=== PATIENT | male | born 1950 | race Caucasian/White ===

== ENCOUNTER 2020-10-09 08:07 | Observation (INO) ==
--- NOTE | 2020-09-19 12:58 | Anesthesiology Consultation ---
Date of Service September 19, 2020 Assessment & Plan (1) Encounter for pre-operative examination: - Per assessment on 09/19: Travel screen negative. No known COVID-19 positive contacts or current COVID-19 related symptoms. Surgeon arranging preop COVID te sting (scheduled 10/02). Awaiting results. - ASA instructions: per surgeon/prescriber - Hx VSD s/p occluder (placed 2002): Patient subsequently discharged from cardiology/no issues since. Case reviewed with Dr. Romero (per 11/04/19 anesthesia consultation note when patient was originally scheduled for this surgery which has since been r/s multiple times). No further cardiac evaluation/testing needed prior to surgery from her perspective. Chart Review Chart Review: Acceptable Risk for Surgery and Patient NOT seen in Pre Admission Testing History Surgery Operation Date: 10/09/20 10:40 Proposed Procedures p Right Total Knee Arthroplasty - Otis Gonzalez MD Height/Weight Height: 6 ft 2 in Weight: 95.254 kg Allergies Allergy/AdvReac Type Severity Reaction Status Date / Time No Known Allergies Allergy Verified 09/19/20 11:25 Medications Home Medications Medication Instructions Recorded Confirmed Last Taken amlodipine 5 mg tablet 5 mg PO QAM 05/05/19 09/19/20 Unknown atenolol 50 mg tablet 50 mg PO QAM 05/05/19 09/19/20 Unknown lisinopril 20 mg tablet 20 mg PO BID tab 05/05/19 09/19/20 Unknown acetaminophen 650 mg 1,950 mg PO BID PRN tab 09/02/19 09/19/20 Unknown tablet,extended release aspirin 325 mg PO QAM 10/28/19 09/19/20 Unknown Wheeled Walker #1 ea 07/09/20 07/09/20 Unknown alfuzosin 10 mg tablet,extended 10 mg PO DAILY #90 tab 09/12/20 09/19/20 Unknown release 24 hr Past Medical History Medical History BPH with obstruction/lower urinary tract symptoms History of stroke 2002 (prior to cath)- no residual effects Hypercholesterolemia Hypertension Osteoarthritis Right knee DJD Ventricular septal defect with absent outlet septum and overriding truncal valve s/p cardiac occluder Past Family History Family History Other Colorectal cancer Deep vein thrombosis Heart disease Pulmonary embolism Stroke Past Surgical History Surgical History H/O cardiac catheterization 2002 [facility] and no stent History of colonoscopy History of esophagogastroduodenoscopy (EGD) History of transesophageal echocardiography (ARETHA) 2002 Presence of other cardiac implants and grafts cardiac occluder inserted (2002)- discharged from cardiology per patient Social History Smoking Status: Never smoker Hx Alcohol Use: Yes Alcohol type: beer alcohol intake frequency: a few times a month substance use type: does not use Testing Laboratory Results 08/13/20 WBC 3.84 (surgeon's office made aware) H/H 13.7/41.4 PLATELETS 196 SODIUM 144 POTASSIUM 4.7 CHLORIDE 110 CO2 32 BUN 18 CREATININE 0.87 GLUCOSE 109 PT 11.0 PTT 26.9 INR 1.0 TYPE AND SCREEN O+Ab- Electrocardiogram Date: 11/04/19 SB with sinus arrhythmia at 50bpm. Minimal voltage criteria for LVH, may be normal variant. Chest X-Ray Date: 11/04/19 Findings: + NAD
--- NOTE | 2020-10-06 13:30 | History and Physical Report ---
DATE OF ADMISSION: 10/09/2020 CHIEF COMPLAINT: Bilateral knee pain and discomfort, right side greater than left. HISTORY OF PRESENT ILLNESS: The patient is a 69-year-old gentleman who now presents again for surgical treatment of his right knee. He has got a long history of bilateral knee pain and discomfort and we have been following him for the past 2 years. He has been through extensive conservative treatment, which became less successful over time. He has actually been scheduled for right knee replacement on several occasions, but had to be canceled due to the COVID epidemic. Then there were some business issues that he had to take care of. He continues to be limited by his knee pain, discomfort, swelling. He now presents for surgical treatment. Pain is global. The more he is up on it, the more it hurts. He limps more as the day goes on. PAST MEDICAL HISTORY: 1. Hypertension. 2. History of a TIA/mini stroke. 3. History of atrial fibrillation in the past, but not on any blood thinners. 4. TMJ. 5. Low back pain/sciatica. PAST SURGICAL HISTORY: Include heart catheterization for AFib. ALLERGIES: None. CURRENT MEDICATIONS: Include: 1. Atenolol. 2. Amlodipine. 3. Lisinopril. 4. Aspirin. SOCIAL HISTORY: A 69-year-old male. He lives in [place]. Seven drinks per week. Does not smoke. FAMILY HISTORY: Noncontributory. REVIEW OF SYSTEMS: Significant for history of atrial fibrillation, treated effectively with a Watchman device. He is off anticoagulation. No chest pain or shortness of breath. No history of DVT or PE. No known bleeding problems. PHYSICAL EXAMINATION GENERAL: Shows a pleasant, middle-aged male, looks to be in pretty good health. HEENT: Benign. NECK: Supple, no lymphadenopathy. LUNGS: Clear to auscultation. HEART: Has a regular rate and rhythm. ABDOMEN: Soft, nontender, nondistended. EXTREMITIES: Grossly neurovascularly intact except as follows. Examination of the right knee reveals the patient ambulates independently. He has got fairly neutral to slight valgus alignment to his knee. He has got a small to moderate size knee effusion. Range of motion about 5 degrees short of full extension to 125 degrees of flexion. There is no instability. No pain with hip motion. X-RAYS: X-rays of the right knee were reviewed. It shows moderate to advanced right knee DJD. He has got tricompartment disease. He still got some cartilage space, but osteophytes in all 3 compartments. ASSESSMENT: A 69-year-old male with bilateral knee degenerative joint disease, right side worse than the left. It has progressed over the years and he has failed conservative treatment and would like to have his right knee replaced. He has actually been scheduled on 2 occasions, but canceled due to COVID issues. PLAN: We are going to take him to the operating room and do right total knee replacement. The risks and benefits of this procedure were explained to the patient including but not limited to DVT, PE, , infection, neurological injury, vascular injury, bleeding problem, pain, limited range of motion, stiffness, failure to relieve symptoms, incomplete relief of symptoms, need for further surgery in future, fracture, leg length inequality, nerve palsy, etc. The patient understands and desires to proceed. Informed consent was obtained. He does have this history of atrial fibrillation, but has been treated effectively with a Watchman device. He is off anticoagulation. We will use his full strength aspirin that he takes twice a day for DVT prophylaxis. He knows to hold his lisinopril the morning of surgery and take his metoprolol/atenolol. He is planning to be discharged to home using [facility] home health program.
[~2020-10-09 08:07] MED LIST: ACETAMINOPHEN 500 MG TAB PO SCH; BUPIVACAINE 0.5 % 5 MG/1 ML PF 10ML VIAL ONE; BUPIVACAINE LIPOSOME/PF 266 MG, BUPIVACAINE/EPINEPHRINE 50 ML, SODIUM CHLORIDE 0.9% 30 ... INFIL SCH; FAMOTIDINE 20 MG TAB PO SCH; GABAPENTIN 300 MG CAP PO SCH; LR 500ML BOLUS, THEN 15ML/HR IV SCH; LR 60ML/HR IV SCH; METOCLOPRAMIDE HCL 10 MG TABLET PO SCH; ROPIVACAINE 0.5% 5 MG/ML 30 ML VIAL ONE; TRANEXAMIC ACID 1,000 MG **IV Intra-op IV SCH; ceFAZolin 2000MG 2,000 MG/15 ML SYR IV SCH
--- NOTE | 2020-10-09 08:57 | History & Physical Bridge Note ---
Date of Service October 09, 2020 History & Physical Bridge Note I have examined the patient, reviewed the History & Physical and in the interval since the performance of the History & Physical I have noted the following changes of clinical significance: no changes noted
[2020-10-09] MEDS ORDERED: MIDAZOLAM HCL 1 MG/ML 2ML VIAL ONE (09:32)
[2020-10-09] MEDS ORDERED: PROPOFOL IV EMULSION 10 MG/ML 20 ML VIAL IV ONE ×2 (09:34→10:37)
[2020-10-09] MEDS ORDERED: BUPIVACAINE LIPOSOME 1.3% 266 MG/20 ML VIAL ONE (10:35)
[2020-10-09] MEDS ORDERED: SODIUM CHLORIDE 0.9% PF 50 ML VIAL ONE (10:35)
[2020-10-09] MEDS ORDERED: BACITRACIN INJ 50,000 UNIT VIAL ONE (10:35)
[2020-10-09] MEDS ORDERED: EPINEPHrine INJ 1 MG/ML AMP ONE (10:36)
[2020-10-09] MEDS ORDERED: BUPIVACAINE 0.25% 30 ML VIAL ONE (10:36)
[2020-10-09] MEDS ORDERED: HYDROmorphone INJ 1 MG/ML SYRINGE IV PRN (11:00)
[2020-10-09] MEDS ORDERED: KETOROLAC 30 MG/ML VIAL IV PRN (11:00)
[2020-10-09] MEDS ORDERED: ONDANSETRON INJ 2 MG/ML 2 ML VIAL IV PRN ×2 (11:00→14:29)
[2020-10-09] MEDS ORDERED: ATROPINE SULFATE 0.1 MG/ML 10ML SYR IV PRN (11:00)
[2020-10-09] MEDS ORDERED: ePHEDrine sulfate 50 MG/ML AMP IV PRN (11:00)
[2020-10-09] MEDS ORDERED: ONDANSETRON INJ 2 MG/ML 2 ML VIAL ONE (12:51)
--- NOTE | 2020-10-09 13:04 | Post Operative Brief Note ---
PG Immediate Post Op with CF Date of Surgery October 09, 2020 Pre & Post Diagnosis Operation Date: 10/09/20 10:40 Pre-Op Diagnosis: Right Knee Degenerative Joint Disease; Knee Pain Post-Op Diagnosis: Right Knee Degenerative Joint Disease; Knee Pain I identified the patient and participated in the time-out.: Yes Procedure Operation Date: 10/09/20 10:40 Actual Procedures p Right Total Knee Replacement(Right) - Otis Gonzalez MD Surgeon Otis Gonzalez MD Woodwork Salvage Inspector MANDIE Silva Estimated Blood Loss 50 Findings Consistent with Post-Op Diagnosis Fluids 1200 cc Specimens Specimen Description: A. Right knee bone and tissue Drains Hemovac Drain Anesthesia Type Spinal MAC Complications none Disposition Accompanied Patient To Recovery: No Disposition: Recovery Room
--- NOTE | 2020-10-09 13:19 | Operative Report ---
Post Operative Report Pre & Post Diagnosis Operation Date: 10/09/20 10:40 Pre-Op Diagnosis: Right Knee Degenerative Joint Disease; Knee Pain Post-Op Diagnosis: Right Knee Degenerative Joint Disease; Knee Pain I identified the patient and participated in the time-out.: Yes Procedure Operation Date: 10/09/20 10:40 Actual Procedures p Right Total Knee Replacement(Right) - Otis Gonzalez MD Surgeon Otis Gonzalez MD Animal Science Instructor MANDIE Silva Estimated Blood Loss 50 Findings Consistent with Post-Op Diagnosis Operative findings were advanced right knee tricompartment DJD. He had extensive grade 4 [id number]-amnr disease with erosions in all 3 compartments and osteophytes in all 3 compartments. Moderate to large knee joint effusion. He had a valgus deformity to his knee. Fluids 1200 cc. Specimens Right knee sent for pathology. Drains None. Anesthesia Type Spinal MAC Complications none Disposition Accompanied Patient To Recovery: No Disposition: Recovery Room Indications Patient is a 69-year-old gentleman is had a several year history of increasing right knee pain discomfort. This became unresponsive conservative care. X-ray revealed moderate knee DJD. He did have an MRI which showed much more extensive arthritic change. He failed all conservative measures. He continued be bothered by recurrent pain discomfort swelling in his knee. He elected proceed with surgical treatment. Description of Procedure Operative implants consist of: 1 Biomet Vanguard size 72.5 right posterior stabilized femoral component. 2. Biomet size 83 tibial tray. 3. 10 mm posterior stabilized polyethylene insert. 4. 34 x 8 and half all polypatella. The patient was taken to the operating identified placed in the operating table supine position but all contact areas were properly padded. IV antibiotics tried by anesthesia team. A spinal anesthetic and abductor canal block had provided holding area. Jefferson catheter was placed in sterile fashion. Right thigh turn was then placed in the right lower extremities and prepped and draped in usual sterile fashion. The right leg was elevated exsanguinated with use of an Esmarch and turns placed at 300 mmHg. An anterior approach to the right knee was then performed through a longitudinal incision centered over the patella. Sharp dissection was got through subcutaneous tissue down the extensor mechanism. A medial parapatellar arthrotomy incision was made. Some subperiosteal dissection was carried out medially. The fat pad was resected from each patella tendon. Lateral patellofemoral ligament was released. Patella was everted and and subluxated laterally. The knee was flexed. The osteophytes were taken off distal femur. The ACL and PCL were then released from distal femur and the tibia subluxated anteriorly. The external tibial alignment jig was then placed in the interface the tibia and adjusted 12 mm medially. Proximal tibial cut was made remove about 3 to 4 mm of bone from the medial side. The tibia was then sized to a size 83. Attention drawn the femur. The distal femur was entered with a sharp drop with intramedullary canal was suction. A right 5 degree valgus cutting guide was placed. Distal femoral cutting block was pinned in place. The distal femoral cut was made to take an additional 5 mm of bone off distal femur due to his flexion contracture. I did initially take just 3 mm off but then brought the knee in extension and it still seemed a little bit tight so we took an additional 2 mm. I brought the knee into extension. I did release the IT band and the posterior lateral capsule in order to equalize extension gap to taking great care to protect the peroneal nerve at all times. The knee was flexed. The femur was then sized to a size 72.5. The AP cutting block was pinned parallel to the epicondylar axis which was 5 degrees of external rotation. The anterior cut, anterior chamfer, posterior cut, posterior chamfer cuts were made. Box cutting guide was placed in a just slight lateral box cut was made. The knee was flexed. The remnants of the medial lateral menisci were excised. The osteophytes were taken off the posterior aspect of the femur. I did release the popliteus in order to equalize the flexion gaps. The femoral component was then placed. The tibial tray was pinned in maximum external rotation and the drill and stem punch used to create defect in proximal tibia for the tibial tray. The knee was then trialed and the 10 mm insert fit most appropriately. Attention drawn the patella. Nipride the patella was cleaned of all soft tissues. Patella thickness measured 23 mm in thickness was cut down to 14. Was sized to a size 34 patella. The lug holes were drilled for 34 patella. The lateral osteophyte is moved. Patella button was placed. Knee was taken through range of motion patella tracked nicely with no thumbs test. Attention drawn to place the permanent components. All trial components were removed. A bone plug was placed in the distal femur limit blood loss put a double batch Palacos G cement was mixed. Biomet Vanguard size 72.5 right posterior stabilized femoral component, size 83 tibial tray, 10 mm posterior stabilized polyethylene insert, and a 34 x 8 and half all poly patella were then cemented in place. The knee was brought out into full extension total cement hardened. Final cement check was then performed. The pericapsular tissues were injected with total 100 cc of combination of 20 cc of Exparel, 30 cc normal saline, 50 cc of quarter percent Marcaine with epinephrine. Patient did receive 1 g tranexamic acid. The tourniquet was then let down for tourniquet time 63 minutes. Hemostasis assured with electrocautery. Extensor mechanism closed with combination normal #1 PDS suture #1 Vicryl suture in a [id number] fashion. Extensor mechanism checked found to be intact and the subcutaneous tissue then closed with 2 Dexon suture in a buried interrupted fashion skin was closed skin abraham. Leg was then cleaned dried and sterile dressing was Xeroform, 4 x 4's, sterile cast padding, Alfonso bandage applied. Patient then transferred to the recovery room in stable condition. Patient tolerated procedure well and there were no complications. Lance Silva, my physician assistant professor of biology, was present for the entire procedure. His assistance was essential and required for appropriate patient positioning, prepping and draping, surgical exposure, performing the technical details of the operation, placement the implants, closure of the wound, and placement of the sterile bandage. I attest to the content of the Intraoperative Record and any orders documented therein. Any exceptions are noted below.
--- NOTE | 2020-10-09 13:35 | XRay Report ---
XR knee RT 1 or 2V routine CLINICAL HISTORY: Postoperative evaluation. COMPARISON: Knee radiographs July 09, 2020. FINDINGS: Alignment of the total right knee arthroplasty is anatomic. There is no periprosthetic fra cture or unexpected radiopaque foreign body. There are skin abraham. IMPRESSION: Expected findings following total right knee arthroplasty. ACT 112: Negative or not required by law. Electronically signed by: Primo Hanley M.D. 10/09/2020 1:34 PM
--- NOTE | 2020-10-09 13:44 | Anesthesiology Progress Note ---
Date of Service October 09, 2020 Anesthesia Post Procedure Vital Signs Vital Signs: Temp Pulse Pulse Resp BP BP Pulse Ox 10/09/20 13:40 50 L 20 130/74 100 10/09/20 13:30 54 L 15 129/86 98 10/09/20 13:20 63 20 130/74 97 10/09/20 13:11 36.5 C 59 L 13 111/80 100 10/09/20 09:11 60 18 130/79 100 10/09/20 08:29 37.1 C 61 16 148/95 H 99 Pain Intensity Bilateral Anterior Knee: Pain Intensity: 0 Transfer of Care Handoff Completed per policy Notes Mental Status: alert / awake / arousable Patient Amnestic to Procedure: Yes Nausea / Vomiting: adequately controlled Pain: adequately controlled Airway Patency, RR, SpO2: stable & adequate BP & HR: stable & adequate Hydration State: stable & adequate Anesthetic Complications: no major complications apparent
[2020-10-09] MEDS ORDERED: bisacodyL 10 MG SUPP PR PRN (14:29)
[2020-10-09] MEDS ORDERED: MAGNESIUM HYDROXIDE SUSP 30 ML UDC PO PRN (14:29)
[2020-10-09] MEDS ORDERED: NALOXONE HCL 0.4 MG/1 ML VIAL/CARP IV PRN (14:29)
[2020-10-09] MEDS ORDERED: METOCLOPRAMIDE HCL INJ 5 MG/ML 2 ML VIAL IV PRN (14:29)
[2020-10-09] MEDS ORDERED: ALUMINUM/MAGNESIUM SUSP 30 ML UDC PO PRN (14:29)
[2020-10-09] MEDS ORDERED: TAMSULOSIN HCL 0.4 MG CAP PO PRN (14:29)
[2020-10-09] MEDS ORDERED: HYDROmorphone INJ 0.5 MG/0.5 ML SYR IV PRN (14:29)
[2020-10-09] MEDS: SODIUM CHLORIDE 0.9% 1000ML 1,000 ML IV SCH (15:22)
[2020-10-09] MEDS: KETOROLAC TROMETHAMINE 15 MG/ML VIAL IV SCH ×2 (15:22→21:40)
[2020-10-09] MEDS: ACETAMINOPHEN 500 MG TAB PO SCH ×2 (15:22→21:40)
[2020-10-09] MEDS: oxyCODONE HCL IR 5 MG TAB (IMMEDIATE RELEASE) PO PRN (16:38)
[2020-10-09] MEDS: ASCORBIC ACID 500 MG TAB PO SCH (16:39)
[2020-10-09] MEDS: FERROUS GLUCONATE 324 MG TAB PO SCH (16:39)
[2020-10-09] MEDS: ceFAZolin 2000MG 2,000 MG/15 ML SYR IV SCH (18:28)
[2020-10-09] MEDS ORDERED: TRANEXAMIC ACID / 0.7% NACL 1,000 MG/100 ML BAG IV SCH (19:00)
[2020-10-09] MEDS ORDERED: ALFUZOSIN HCL 10 MG TAB PO SCH (19:00)
[2020-10-09] MEDS ORDERED: SENNA 8.6 MG TAB PO SCH (21:00)
[2020-10-09] MEDS: TAPENTADOL HCL ER 50 MG TABCR PO SCH (21:39)
[2020-10-09] MEDS: lisinopril 20 MG TAB PO SCH (21:39)
[2020-10-09] MEDS: DOCUSATE SODIUM 100 MG CAP PO SCH (21:40)
[2020-10-09] MEDS: ASPIRIN 325 MG ECTAB PO SCH (21:40)
[2020-10-10] MEDS: SODIUM CHLORIDE 0.9% 1000ML 1,000 ML IV SCH (00:56)
[2020-10-10] MEDS: KETOROLAC TROMETHAMINE 15 MG/ML VIAL IV SCH ×2 (03:53→09:03)
[2020-10-10] MEDS: ceFAZolin 2000MG 2,000 MG/15 ML SYR IV SCH (03:54)
[2020-10-10] MEDS: ACETAMINOPHEN 500 MG TAB PO SCH (05:38)
[2020-10-10 06:43] LABS: Hemoglobin 11.4 g/dL (14.0-18.0); Mean Corpuscular Hemoglobin 32.9 pg (25-34); Mean Corpuscular Hgb Conc 33.5 g/dL (32-36); Mean Corpuscular Volume 98.3 fL (80-100); Mean Platelet Volume 11.2 fL (7.4-10.4); Platelet Count 176 K/uL (130-400); RDW Coefficient of Variation 13.2 % (11.5-14.5); RDW Standard Deviation 47.5 fL (36.4-46.3); Red Blood Count 3.46 M/uL (4.7-6.1); White Blood Count 6.24 K/uL (4.8-10.8)
[2020-10-10 07:16] LABS: BUN Creatinine Ratio 19.4 (10-20); Est GFR (African American) 94.8; Est GFR (Non-African American) 81.8; Potassium 4.1 mmol/L (3.5-5.1)
[2020-10-10] MEDS ORDERED: dexAMETHasone 4 MG TAB PO SCH (08:00)
--- NOTE | 2020-10-10 08:24 | Anesthesiology Progress Note ---
Date of Service October 10, 2020 Anesthesia Post Procedure Vital Signs Vital Signs: Temp Pulse Pulse Resp BP BP Pulse Ox 10/10/20 07:37 36.8 C 70 16 123/75 95 10/10/20 03:54 37 C 63 16 118/69 96 10/09/20 22:58 36.8 C 64 18 119/66 96 10/09/20 21:38 60 142/78 H 95 10/09/20 19:16 36.6 C 49 L 18 125/76 97 10/09/20 17:30 37.5 C 52 L 18 162/88 H 94 10/09/20 16:30 54 L 18 151/81 H 98 10/09/20 15:29 36.4 C L 52 L 18 148/87 H 100 10/09/20 14:58 36.4 C L 49 L 18 162/83 H 100 10/09/20 14:30 36.8 C 47 L 16 162/77 H 99 10/09/20 14:15 46 L 20 144/82 H 100 10/09/20 14:00 48 L 17 147/80 H 100 10/09/20 13:45 36.8 C 51 L 12 132/78 100 10/09/20 13:40 50 L 20 130/74 100 10/09/20 13:30 54 L 15 129/86 98 10/09/20 13:20 63 20 130/74 97 10/09/20 13:11 36.5 C 59 L 13 111/80 100 10/09/20 09:11 60 18 130/79 100 10/09/20 08:29 37.1 C 61 16 148/95 H 99 Pain Intensity Bilateral Anterior Knee: Pain Intensity: 0 Notes Mental Status: alert / awake / arousable and participated in evaluation Patient Amnestic to Procedure: Yes Nausea / Vomiting: adequately controlled Pain: adequately controlled Airway Patency, RR, SpO2: stable & adequate Hydration State: stable & adequate Neuraxial Anesthesia: was administered and sensory block is resolving Anesthetic Complications: no major complications apparent and Pt Satisfied with anesthetic care
[2020-10-10] MEDS ORDERED: amLODIPine BESYLATE 5 MG TAB PO SCH (09:00)
[2020-10-10] MEDS ORDERED: MULTIVITAMIN TAB PO SCH (09:00)
[2020-10-10] MEDS ORDERED: ATENOLOL 50 MG TABLET PO SCH (09:00)
[2020-10-10] MEDS: DOCUSATE SODIUM 100 MG CAP PO SCH (09:04)
[2020-10-10] MEDS: ASPIRIN 325 MG ECTAB PO SCH (09:04)
[2020-10-10] MEDS: ASCORBIC ACID 500 MG TAB PO SCH (09:04)
[2020-10-10] MEDS: lisinopril 20 MG TAB PO SCH (09:04)
[2020-10-10] MEDS: TAPENTADOL HCL ER 50 MG TABCR PO SCH (09:10)
[2020-10-10] MEDS: oxyCODONE HCL IR 5 MG TAB (IMMEDIATE RELEASE) PO PRN (09:10)
--- NOTE | 2020-10-10 10:12 | Progress Notes ---
DATE: 10/10/2020 SUBJECTIVE: A 69-year-old gentleman postop day 1 from right knee replacement. He is doing quite well. Pain has been pretty controlled. He had a pretty good night. No chest pain or shortness of breath. Not feeling dizzy or lightheaded. OBJECTIVE: VITAL SIGNS: Temperature is 36.8. Vital signs are stable. GENERAL: Shows a pleasant, middle-aged male. He is sitting up in his bedside chair, talking to the therapist. LUNGS: Clear to auscultation. HEART: Has a regular rate and rhythm. ABDOMEN: Soft, nontender, nondistended. EXTREMITIES: Grossly neurovascularly intact except as follows: Examination of the right lower extremity reveals the leg to be well aligned. Dressing is clean, dry, and intact. He can dorsiflex and plantarflex his foot appropriately. He is neurologically intact. He can do a straight leg raise. LABORATORY DATA: Hemoglobin 11.4. Hematocrit 34.0. Electrolytes are stable. ASSESSMENT: A 69-year-old gentleman postoperative day 1 from right knee replacement, doing quite well. His pain is controlled. He is neurologically intact. PLAN: 1. DVT prophylaxis including thigh-high TEDs, SCDs, and aspirin twice a day. 2. PT/OT. Weight bear as tolerated. Right total knee protocol. 3. Pain control, doing well with current pain regimen. 4. Disposition: Plan to discharge to home with some home health likely later today if he does okay in PT and his pain is controlled.
[2020-10-10] MEDS: FERROUS GLUCONATE 324 MG TAB PO SCH (11:20)
--- NOTE | 2020-10-12 13:24 | Discharge Summary ---
Date of Service October 12, 2020 Discharge Data Consultations 10/09/20 14:29 Consult Case Management - Discharge Planning Routine Procedures Performed Operation Date: 10/09/20 10:40 Actual Procedures p Right Total Knee Replacement(Right) - Otis Gonzalez MD Hospital Course (1) Status post total right knee replacement: This patient is a 69 year old male admitted on 10/09/20 and underwent total knee arthroplasty. He tolerated the procedure well and there were no complications. Transferred to the PACU post op and later to the orthopedic floor for further care. He was given ancef for antibiotic prophylaxis. He was also given SANDY stockings, SCDs, and aspirin for DVT prophylaxis. Hemoglobin, hematocrit, and vital signs were monitored during his hospital stay and remained stable. Did not require any blood transfusions. There were no complications during his hospital stay. By post op day #1 the patient was tolerating a regular diet, pain was reasonably controlled with oral pain medicine, and he was participating in physical therapy. On post op day #1 the patient was discharged home and set up with home health care. He was given printed discharge instructions including prescriptions for extra strength tylenol, aspirin, and oxycodone. Continue physical therapy, weight bearing as tolerated. Continue SANDY stockings. Follow up approximately 2 weeks post op or sooner if there are problems or concerns. Coding Level of Care Code None Diagnoses Status post total right knee replacement Z96.651
== END 2020-10-10 12:59 | disposition home health service (06) ==
LOC: 3E 08:07 → ASU 08:07